=== PATIENT | male | born 1960 | race Caucasian/White ===

== ENCOUNTER 2016-06-19 16:57 | Inpatient (IN) | payer MEDICAID, OTHER ==
[~2016-06-19] VITALS: Ht 167.6 cm; Wt 87.8 kg
[2016-06-19 18:00] LABS: Basophils # (auto) 0.1 uL; Basophils % (auto) 0.5 % (0.0-2.0); Eosinophils # (auto) 0.4 uL; Eosinophils % (auto) 3.5 % (0.0-7.0); Hematocrit 26.6 % (41.0-53.0); Hemoglobin 8.9 g/dL (13.5-17.5); Lymphocytes # (auto) 1.8 uL; Lymphocytes % (auto) 15.8 % (10.0-50.0); Mean Corpuscular Hemoglobin 30.7 pg (28.0-32.0); Mean Corpuscular Hgb Conc. 33.3 g/dL (32.0-36.0); Mean Corpuscular Volume 92.1 fL (80.0-100.0); Mean Platelet Volume 6.8 fL (7.4-10.4); Monocytes # (auto) 1.1 uL; Monocytes % (auto) 9.7 % (0.0-12.0); Neutrophils % (auto) 70.5 % (37.0-80.0); Platelet Count (auto) 563 10^3/uL (140-450); Red Cell Distribution Width 14.6 % (11.6-16.0); White Blood Cell 11.3 10^3/uL (4.4-10.8)
[2016-06-19 18:22] LABS: Albumin 2.5 g/dL (3.4-5.0); BUN/Creatinine Ratio 9.5; Bilirubin, Total 0.5 mg/dL (0.2-1.0); Calcium 8.9 mg/dL (8.5-10.1); Potassium 3.3 mmol/L (3.5-5.1); Total Protein 7.1 g/dL (6.4-8.2)
[2016-06-19] MEDS ORDERED: metroNIDAZOLE 500MG/100ML 100 ML IV ONE (21:30)
[2016-06-19] MEDS ORDERED: PIPERACILLIN-TAZOB 3.375GM 100 ML IV ONE (21:30)
[2016-06-19] MEDS ORDERED: TPN PER PHARMACY 0 ML IV SCH (23:00)
[2016-06-19] MEDS ORDERED: ACETAMINOPHEN 325 MG TAB PO PRN (23:00)
[2016-06-19] MEDS ORDERED: PANTOPRAZOLE SODIUM 40 MG/10 ML VIAL IV ONE (23:00)
[2016-06-19] MEDS ORDERED: POTASSIUM CHL 20MEQ/100ML 100 ML IV ONE (23:15)
[2016-06-19 23:50] VITALS: BP 157/88
[2016-06-20] MEDS: MORPHINE SULF INJ 2 MG/ML SYRINGE 1ML IV PRN ×3 (00:53→21:12)
[2016-06-20] MEDS ORDERED: PIPERACILLIN-TAZOB 3.375GM 100 ML IV SCH (02:00)
[2016-06-20 05:00] VITALS: BP 131/85
[2016-06-20] MEDS: metroNIDAZOLE 500MG/100ML 100 ML IV SCH ×3 (05:29→22:57)
[2016-06-20] MEDS ORDERED: HYDR-2652 PO (06:09)
[2016-06-20] MEDS ORDERED: CARV6.2551 PO (06:10)
[2016-06-20] MEDS ORDERED: LISI-646 PO (06:11)
[2016-06-20] MEDS ORDERED: AMLO5TAB2 PO (06:11)
[2016-06-20] MEDS: PIPERACILLIN-TAZOB 3.375GM 100 ML IV SCH ×3 (06:41→17:32)
[2016-06-20 06:57] LABS: Basophils # (auto) 0 uL; Basophils % (auto) 0.3 % (0.0-2.0); Eosinophils # (auto) 0.4 uL; Hematocrit 26.1 % (41.0-53.0); Lymphocytes # (auto) 1.4 uL; Lymphocytes % (auto) 12.9 % (10.0-50.0); Mean Corpuscular Hemoglobin 31.5 pg (28.0-32.0); Mean Corpuscular Hgb Conc. 34.5 g/dL (32.0-36.0); Mean Corpuscular Volume 91.4 fL (80.0-100.0); Mean Platelet Volume 6.6 fL (7.4-10.4); Monocytes # (auto) 1.1 uL; Monocytes % (auto) 9.7 % (0.0-12.0); Neutrophils % (auto) 73.1 % (37.0-80.0); Platelet Count (auto) 507 10^3/uL (140-450); Red Cell Distribution Width 14.9 % (11.6-16.0)
[2016-06-20] MEDS ORDERED: DEXTROSE (50%) 50ML SYRG IV SCH (07:15)
[2016-06-20 07:21] LABS: Calcium 8.8 mg/dL (8.5-10.1); Potassium 3.6 mmol/L (3.5-5.1)
[2016-06-20 07:24] LABS: Albumin 2.5 g/dL (3.4-5.0); BUN/Creatinine Ratio 10.4; Magnesium 1.9 mg/dL (1.6-2.6)
[2016-06-20 07:27] LABS: Bilirubin, Total 0.3 mg/dL (0.2-1.0); Total Protein 6.8 g/dL (6.4-8.2)
[2016-06-20 07:44] LABS: Phosphorus 3.5 mg/dL (2.5-4.90)
[2016-06-20 09:00] VITALS: BP 142/83
[2016-06-20 09:02] LABS: INR 0.99 (0.9-1.15); Prothrombin Time 10.7 sec (9.37-12.3)
[2016-06-20] MEDS ORDERED: LIDOCAINE 2%HCL (LOCAL ANESTH.) INJ 20ML MDV ONE (09:21)
[2016-06-20] MEDS: PANTOPRAZOLE SODIUM 40 MG/10 ML VIAL IV SCH (10:09)
[2016-06-20] MEDS ORDERED: MIDAZOLAM HCL 1MG/1ML-2 ML VIAL ONE (11:04)
[2016-06-20] MEDS ORDERED: fentaNYL CITRATE 100 MCG/2 ML VL ONE (11:04)
[2016-06-20] MEDS ORDERED: InsuLIN REG 1unit/0.01ml Soln (100units/ml) SC SCH (12:00)
[2016-06-20] MEDS ORDERED: ACCU-CHEK COMFORT CURVE STRIP VI SCH (12:00)
[2016-06-20 13:00] VITALS: BP 162/96
[2016-06-20 18:27] VITALS: BP 156/87
[2016-06-20] MEDS ORDERED: TPN PER PHARMACY IV NR ×10 (20:00)
[2016-06-20] MEDS: hydrALAZINE HCL 20 MG/ML VL IV PRN (21:14)
[2016-06-20 22:00] VITALS: BP 166/97
[2016-06-21] MEDS: PIPERACILLIN-TAZOB 3.375GM 100 ML IV SCH ×5 (01:38→23:59)
[2016-06-21] MEDS: MORPHINE SULF INJ 2 MG/ML SYRINGE 1ML IV PRN ×5 (02:54→21:50)
[2016-06-21 05:00] VITALS: BP 150/83
[2016-06-21] MEDS: metroNIDAZOLE 500MG/100ML 100 ML IV SCH ×3 (05:09→21:50)
[2016-06-21 08:00] VITALS: BP 133/82
[2016-06-21 09:00] VITALS: BP 133/82
[2016-06-21] MEDS: PANTOPRAZOLE SODIUM 40 MG/10 ML VIAL IV SCH (09:20)
[2016-06-21 10:34] LABS: Urine Bilirubin Negative (Negative); Urine Color Yellow (Yellow); Urine Glucose Normal (Normal); Urine Ketone Negative (Negative); Urine Nitrite Negative (Negative); Urine RBC 8 /hpf (0 - 3); Urine Squamous Epithelial Cell FEW /hpf (<5); Urine Urobilinogen Normal (Negative); Urine pH 6.5 (5.0-8.0)
[2016-06-21 10:35] LABS: Urine Blood 1+ /uL (Negative)
[2016-06-21] MEDS: hydrALAZINE HCL 20 MG/ML VL IV PRN (12:37)
[2016-06-21] MEDS ORDERED: IOTHALAMATE MEGLUMINE INJ 250ML BOT UR ONE (12:45)
[2016-06-21 13:00] VITALS: BP 156/96
[2016-06-21 17:00] VITALS: BP 152/92
[2016-06-21 22:21] VITALS: BP 132/80
[2016-06-22] VITALS (7 sets, daily range): BP systolic 126–151; BP diastolic 74–97
[2016-06-22] MEDS: MORPHINE SULF INJ 2 MG/ML SYRINGE 1ML IV PRN ×6 (01:56→21:24)
[2016-06-22] MEDS: metroNIDAZOLE 500MG/100ML 100 ML IV SCH ×3 (05:24→21:24)
[2016-06-22 06:21] LABS: Basophils # (auto) 0 uL; Basophils % (auto) 0.2 % (0.0-2.0); Eosinophils # (auto) 0.3 uL; Eosinophils % (auto) 2.9 % (0.0-7.0); Hematocrit 26.3 % (41.0-53.0); Hemoglobin 8.9 g/dL (13.5-17.5); Lymphocytes # (auto) 1.1 uL; Lymphocytes % (auto) 9.7 % (10.0-50.0); Mean Corpuscular Hemoglobin 31.1 pg (28.0-32.0); Mean Corpuscular Hgb Conc. 33.9 g/dL (32.0-36.0); Mean Corpuscular Volume 91.7 fL (80.0-100.0); Monocytes # (auto) 1.3 uL; Monocytes % (auto) 11.8 % (0.0-12.0); Neutrophils # (auto) 8.4 uL; Neutrophils % (auto) 75.4 % (37.0-80.0); Platelet Count (auto) 483 10^3/uL (140-450); White Blood Cell 11.1 10^3/uL (4.4-10.8)
[2016-06-22 06:32] LABS: Albumin 2.5 g/dL (3.4-5.0); Calcium 8.4 mg/dL (8.5-10.1); Potassium 3.5 mmol/L (3.5-5.1)
[2016-06-22 06:34] LABS: BUN/Creatinine Ratio 7.5
[2016-06-22 06:37] LABS: Bilirubin, Total 0.6 mg/dL (0.2-1.0); Total Protein 6.4 g/dL (6.4-8.2)
[2016-06-22] MEDS: PIPERACILLIN-TAZOB 3.375GM 100 ML IV SCH ×4 (06:40→23:47)
[2016-06-22] MEDS: PANTOPRAZOLE SODIUM 40 MG/10 ML VIAL IV SCH (09:35)
[2016-06-22] MEDS ORDERED: GASTROGRAFIN 30 ML SOL ONE (13:10)
[2016-06-23] MEDS: MORPHINE SULF INJ 2 MG/ML SYRINGE 1ML IV PRN ×5 (02:07→20:23)
[2016-06-23 05:00] VITALS: BP 135/78
[2016-06-23] MEDS: metroNIDAZOLE 500MG/100ML 100 ML IV SCH ×3 (05:19→21:33)
[2016-06-23] MEDS: PIPERACILLIN-TAZOB 3.375GM 100 ML IV SCH ×4 (06:19→23:45)
[2016-06-23 09:14] VITALS: BP 137/87
[2016-06-23] MEDS: PANTOPRAZOLE SODIUM 40 MG/10 ML VIAL IV SCH (10:45)
[2016-06-23 13:09] VITALS: BP 135/85
[2016-06-23] MEDS ORDERED: MAGNESIUM CITRATE SOLUTION 300 ML BTL PO ONE (14:00)
[2016-06-23 17:10] VITALS: BP 146/91
[2016-06-23 22:00] VITALS: BP 139/81
[2016-06-24] MEDS: MORPHINE SULF INJ 2 MG/ML SYRINGE 1ML IV PRN ×8 (00:32→21:49)
[2016-06-24] MEDS: metroNIDAZOLE 500MG/100ML 100 ML IV SCH ×3 (05:25→21:48)
[2016-06-24 05:52] VITALS: BP 149/86
[2016-06-24] MEDS: PIPERACILLIN-TAZOB 3.375GM 100 ML IV SCH ×2 (06:05→11:49)
[2016-06-24 09:00] VITALS: BP 160/94
[2016-06-24] MEDS: PANTOPRAZOLE SODIUM 40 MG/10 ML VIAL IV SCH (09:00)
[2016-06-24 13:00] VITALS: BP 161/100
[2016-06-24] MEDS ORDERED: MIDAZOLAM HCL 1MG/1ML-2 ML VIAL ONE (14:34)
[2016-06-24] MEDS ORDERED: fentaNYL CITRATE 100 MCG/2 ML VL ONE (14:34)
[2016-06-24] MEDS ORDERED: MEPERIDINE HCL (50 MG/ML) 1 ML VIAL ONE (14:34)
[2016-06-24] MEDS ORDERED: PROPOFOL 10 MG/ML 20 ML IV ONE (14:34)
[2016-06-24] MEDS ORDERED: fentaNYL CITRATE 5 ML ONE (14:34)
[2016-06-24] MEDS ORDERED: DEXAMETHASONE SOD PHOS 10MG/1ML VIAL INJ ONE (14:34)
[2016-06-24 15:19] LABS: Basophils # (auto) 0 uL; Basophils % (auto) 0.4 % (0.0-2.0); Eosinophils # (auto) 0.5 uL; Hematocrit 26.2 % (41.0-53.0); Hemoglobin 8.8 g/dL (13.5-17.5); Lymphocytes # (auto) 1.3 uL; Lymphocytes % (auto) 14.5 % (10.0-50.0); Mean Corpuscular Hemoglobin 30.7 pg (28.0-32.0); Mean Corpuscular Hgb Conc. 33.6 g/dL (32.0-36.0); Mean Corpuscular Volume 91.4 fL (80.0-100.0); Mean Platelet Volume 6.9 fL (7.4-10.4); Monocytes # (auto) 1.2 uL; Monocytes % (auto) 13.6 % (0.0-12.0); Neutrophils # (auto) 5.7 uL; Neutrophils % (auto) 65.5 % (37.0-80.0); Platelet Count (auto) 483 10^3/uL (140-450); Red Cell Distribution Width 14.6 % (11.6-16.0); White Blood Cell 8.6 10^3/uL (4.4-10.8)
[2016-06-24] MEDS ORDERED: ROCURONIUM 10MG/ML 10ML VIAL IV ONE (15:25)
[2016-06-24] MEDS ORDERED: NEOSTIGMINE 1 MG/ML INJ (10mg/10ML VIAL) IV ONE (15:25)
[2016-06-24] MEDS ORDERED: GLYCOPYRROLATE 0.2 MG/ML 1ML VIAL IV ONE (15:25)
[2016-06-24] MEDS ORDERED: BUPIVACAINE 0.25% INJ 50ML VIAL ONE (15:27)
[2016-06-24] MEDS ORDERED: ceFAZolin 1GM/50ML D5W 100 ML IV ONE (15:31)
[2016-06-24] MEDS ORDERED: SUCCINYLCHOLINE CHLORIDE 20 MG/ML 10ML VIAL IV ONE (16:28)
[2016-06-24] MEDS ORDERED: GLYCOPYRROLATE 0.2 MG/ML 1ML VIAL ONE (17:37)
[2016-06-24] MEDS ORDERED: NEOSTIGMINE 1 MG/ML INJ (10mg/10ML VIAL) ONE (17:37)
[2016-06-24] MEDS ORDERED: MIDAZOLAM HCL 1MG/1ML-2 ML VIAL IV PRN (18:00)
[2016-06-24] MEDS ORDERED: ONDANSETRON HCL 4 MG/2 ML VIAL IV ONE (18:00)
[2016-06-24] MEDS ORDERED: KETOROLAC TROMETH 30 MG/ML 1ML VIAL IV ONE (18:00)
[2016-06-24] MEDS ORDERED: ePHEDrine SULFATE 50 MG/ML AMP IV PRN (18:00)
[2016-06-24] MEDS ORDERED: HYDROmorphone HCL 2 MG/ML VL ONE (18:08)
[2016-06-24] MEDS: HYDROmorphone HCL 2 MG/ML VL IV PRN ×6 (18:15→23:35)
[2016-06-24] MEDS ORDERED: LABETALOL HCL 5 MG/ML 4ML SYRINGE IV ONE (18:18)
[2016-06-24] MEDS: LABETALOL HCL 5 MG/ML 4ML SYRINGE IV PRN ×2 (18:23→18:40)
[2016-06-24] MEDS ORDERED: ONDANSETRON HCL 4 MG/2 ML VIAL IV PRN (18:45)
[2016-06-24] MEDS: hydrALAZINE HCL 20 MG/ML VL IV PRN ×2 (18:55→19:10)
[2016-06-24 20:00] VITALS: BP 136/77
[2016-06-24 22:00] VITALS: BP_SYST 106; BP_SYST 136; BP_DIAS 61; BP_DIAS 77
[2016-06-24] MEDS: PIPERACILLIN-TAZOB 2.25GM 50 ML IV SCH (23:42)
[2016-06-25] VITALS (38 sets, daily range): BP systolic 89–155; BP diastolic 50–85
[2016-06-25] MEDS ORDERED: PIPERACILLIN-TAZOB 3.375GM 100 ML IV SCH
[2016-06-25] MEDS: SODIUM CHLORIDE 0.9% 1,000 ML IV SCH ×4 (01:25→21:31)
[2016-06-25] MEDS: MORPHINE SULF INJ 2 MG/ML SYRINGE 1ML IV PRN ×3 (02:19→14:50)
[2016-06-25] MEDS ORDERED: NITROGLYCERIN 0.4 MG SL TAB SL PRN ×2 (03:45)
[2016-06-25] MEDS ORDERED: MORPHINE SULF INJ 2 MG/ML SYRINGE 1ML IV PRN ×2 (03:45)
[2016-06-25] MEDS: HYDROmorphone HCL 2 MG/ML VL IV PRN ×5 (03:52→21:26)
[2016-06-25] MEDS: ONDANSETRON HCL 4 MG/2 ML VIAL IV PRN ×3 (05:04→14:52)
[2016-06-25] MEDS: metroNIDAZOLE 500MG/100ML 100 ML IV SCH ×3 (05:27→22:07)
[2016-06-25] MEDS: PIPERACILLIN-TAZOB 2.25GM 50 ML IV SCH ×3 (06:32→18:16)
[2016-06-25] MEDS: SODIUM CHLOR 0.9% PF (SALINE LOCK) 10ML VIAL IV SCH ×3 (06:37→22:07)
[2016-06-25 06:43] LABS: Basophils # (auto) 0 uL; Eosinophils # (auto) 0 uL; Hematocrit 26.7 % (41.0-53.0); Lymphocytes # (auto) 0.8 uL; Lymphocytes % (auto) 4.9 % (10.0-50.0); Mean Corpuscular Hemoglobin 31.4 pg (28.0-32.0); Mean Corpuscular Hgb Conc. 33.9 g/dL (32.0-36.0); Mean Corpuscular Volume 92.6 fL (80.0-100.0); Mean Platelet Volume 7.4 fL (7.4-10.4); Monocytes # (auto) 1.2 uL; Monocytes % (auto) 7.6 % (0.0-12.0); Neutrophils # (auto) 13.9 uL; Neutrophils % (auto) 87.5 % (37.0-80.0); Platelet Count (auto) 541 10^3/uL (140-450); Red Cell Distribution Width 15.1 % (11.6-16.0); White Blood Cell 15.8 10^3/uL (4.4-10.8)
[2016-06-25 06:52] LABS: INR 1.12 (0.9-1.15); Partial Thromboplastin Time 28.2 sec (22.64-33.71); Prothrombin Time 12.1 sec (9.37-12.3)
[2016-06-25 07:04] LABS: Potassium 4.4 mmol/L (3.5-5.1)
[2016-06-25 07:08] LABS: Albumin 2.3 g/dL (3.4-5.0); BUN/Creatinine Ratio 8.8; Calcium 8.4 mg/dL (8.5-10.1)
[2016-06-25 07:16] LABS: Bilirubin, Total 0.2 mg/dL (0.2-1.0); Total Protein 5.9 g/dL (6.4-8.2)
[2016-06-25] MEDS: PANTOPRAZOLE SODIUM 40 MG/10 ML VIAL IV SCH (10:12)
[2016-06-25] MEDS ORDERED: SODIUM CHLORIDE 0.9% 1,000 ML IV ONE (13:30)
[2016-06-25] MEDS ORDERED: TEMAZEPAM 15 MG CAP PO PRN (21:00)
[2016-06-25 22:11] LABS: Basophils # (auto) 0 uL; Basophils % (auto) 0.3 % (0.0-2.0); DEFINITIVE VIEW TRANSMISSION; Eosinophils # (auto) 0 uL; Eosinophils % (auto) 0.1 % (0.0-7.0); Hematocrit 24.8 % (41.0-53.0); Hemoglobin 8.4 g/dL (13.5-17.5); Lymphocytes # (auto) 1.3 uL; Mean Corpuscular Hemoglobin 30.5 pg (28.0-32.0); Mean Corpuscular Hgb Conc. 33.8 g/dL (32.0-36.0); Mean Corpuscular Volume 90.1 fL (80.0-100.0); Monocytes # (auto) 1.5 uL; Monocytes % (auto) 10.3 % (0.0-12.0); Neutrophils # (auto) 11.9 uL; Neutrophils % (auto) 80.3 % (37.0-80.0); Platelet Count (auto) 391 10^3/uL (140-450); Red Cell Distribution Width 15.2 % (11.6-16.0); White Blood Cell 14.8 10^3/uL (4.4-10.8)
[2016-06-25] MEDS: THROAT LOZENGES(CEPASTAT) MT PRN (23:01)
[2016-06-26] VITALS (99 sets, daily range): BP systolic 135–186; BP diastolic 65–109
[2016-06-26] MEDS: HYDROmorphone HCL 2 MG/ML VL IV PRN ×10 (00:42→22:12)
[2016-06-26] MEDS: PIPERACILLIN-TAZOB 2.25GM 50 ML IV SCH ×5 (00:48→23:45)
[2016-06-26] MEDS: SODIUM CHLORIDE 0.9% 1,000 ML IV SCH ×3 (04:05→17:25)
[2016-06-26] MEDS: hydrALAZINE HCL 20 MG/ML VL IV PRN ×3 (06:12→20:16)
[2016-06-26] MEDS: metroNIDAZOLE 500MG/100ML 100 ML IV SCH ×3 (06:12→22:12)
[2016-06-26] MEDS: SODIUM CHLOR 0.9% PF (SALINE LOCK) 10ML VIAL IV SCH ×3 (06:12→22:12)
[2016-06-26] MEDS: THROAT LOZENGES(CEPASTAT) MT PRN (06:50)
[2016-06-26] MEDS: PANTOPRAZOLE SODIUM 40 MG/10 ML VIAL IV SCH (08:58)
[2016-06-26 09:37] LABS: Basophils # (auto) 0 uL; Basophils % (auto) 0.2 % (0.0-2.0); Eosinophils # (auto) 0.2 uL; Eosinophils % (auto) 1.4 % (0.0-7.0); Hemoglobin 9.7 g/dL (13.5-17.5); Lymphocytes # (auto) 1.1 uL; Lymphocytes % (auto) 7.6 % (10.0-50.0); Mean Corpuscular Hemoglobin 30.1 pg (28.0-32.0); Mean Corpuscular Hgb Conc. 33.6 g/dL (32.0-36.0); Mean Corpuscular Volume 89.5 fL (80.0-100.0); Mean Platelet Volume 6.9 fL (7.4-10.4); Monocytes # (auto) 1.4 uL; Monocytes % (auto) 9.7 % (0.0-12.0); Neutrophils # (auto) 12.1 uL; Neutrophils % (auto) 81.1 % (37.0-80.0); Platelet Count (auto) 332 10^3/uL (140-450); Red Cell Distribution Width 15.5 % (11.6-16.0); White Blood Cell 14.9 10^3/uL (4.4-10.8)
[2016-06-26 09:52] LABS: Albumin 2.5 g/dL (3.4-5.0); BUN/Creatinine Ratio 8.1; Bilirubin, Total 0.4 mg/dL (0.2-1.0); Calcium 8.2 mg/dL (8.5-10.1); Potassium 3.7 mmol/L (3.5-5.1)
[2016-06-26] MEDS ORDERED: POTASSIUM CHL 20MEQ/100ML 100 ML IV ONE (11:00)
[2016-06-26 11:26] LABS: Partial Thromboplastin Time 28.6 sec (22.64-33.71)
[2016-06-26 11:28] LABS: INR 1.31 (0.9-1.15); Prothrombin Time 14.1 sec (9.37-12.3)
[2016-06-26 11:48] LABS: Basophils # (auto) 0 uL; Basophils % (auto) 0.2 % (0.0-2.0); DEFINITIVE VIEW TRANSMISSION; Eosinophils # (auto) 0.3 uL; Eosinophils % (auto) 1.6 % (0.0-7.0); Hemoglobin 9.8 g/dL (13.5-17.5); Lymphocytes % (auto) 6.5 % (10.0-50.0); Mean Corpuscular Hemoglobin 30.1 pg (28.0-32.0); Mean Corpuscular Hgb Conc. 33.6 g/dL (32.0-36.0); Mean Corpuscular Volume 89.5 fL (80.0-100.0); Mean Platelet Volume 7.2 fL (7.4-10.4); Monocytes # (auto) 1.7 uL; Monocytes % (auto) 10.5 % (0.0-12.0); Neutrophils # (auto) 12.7 uL; Neutrophils % (auto) 81.2 % (37.0-80.0); Platelet Count (auto) 335 10^3/uL (140-450); Red Cell Distribution Width 14.9 % (11.6-16.0); White Blood Cell 15.7 10^3/uL (4.4-10.8)
[2016-06-26] MEDS: LINEZOLID 600MG/300ML 300 ML IV SCH (16:00)
[2016-06-26] MEDS: LABETALOL HCL 5 MG/ML 4ML SYRINGE IV PRN ×3 (18:10→23:45)
[2016-06-26 19:07] LABS: Hematocrit 28.9 % (41.0-53.0); Hemoglobin 9.7 g/dL (13.5-17.5)
[2016-06-27] VITALS (96 sets, daily range): BP systolic 136–207; BP diastolic 48–121
[2016-06-27] MEDS: SODIUM CHLORIDE 0.9% 1,000 ML IV SCH ×4 (00:05→20:00)
[2016-06-27] MEDS: HYDROmorphone HCL 2 MG/ML VL IV PRN ×6 (00:18→21:43)
[2016-06-27 00:35] LABS: Hematocrit 29.7 % (41.0-53.0); Hemoglobin 9.9 g/dL (13.5-17.5)
[2016-06-27] MEDS ORDERED: METOPROLOL TARTRATE 1MG/1ML-5ML VIAL IV ONE (00:45)
[2016-06-27] MEDS ORDERED: LISINOPRIL 10 MG TAB PO ONE (01:15)
[2016-06-27] MEDS: LABETALOL HCL 5 MG/ML 4ML SYRINGE IV PRN ×4 (04:00→18:22)
[2016-06-27] MEDS: LINEZOLID 600MG/300ML 300 ML IV SCH ×2 (04:00→16:18)
[2016-06-27 04:24] LABS: Basophils # (auto) 0 uL; Basophils % (auto) 0.2 % (0.0-2.0); DEFINITIVE VIEW TRANSMISSION; Eosinophils # (auto) 0.5 uL; Eosinophils % (auto) 2.9 % (0.0-7.0); Hematocrit 30.3 % (41.0-53.0); Lymphocytes % (auto) 5.9 % (10.0-50.0); Mean Corpuscular Hgb Conc. 33.2 g/dL (32.0-36.0); Mean Corpuscular Volume 90.5 fL (80.0-100.0); Monocytes # (auto) 1.7 uL; Monocytes % (auto) 9.8 % (0.0-12.0); Neutrophils # (auto) 13.9 uL; Neutrophils % (auto) 81.2 % (37.0-80.0); Platelet Count (auto) 331 10^3/uL (140-450); Red Cell Distribution Width 15.9 % (11.6-16.0); White Blood Cell 17.1 10^3/uL (4.4-10.8)
[2016-06-27 04:41] LABS: BUN/Creatinine Ratio 7.7; Calcium 8.3 mg/dL (8.5-10.1); Potassium 4.1 mmol/L (3.5-5.1)
[2016-06-27] MEDS: LORazepam 2MG/ML-1ML VIAL IV PRN ×2 (04:55→20:07)
[2016-06-27] MEDS: SODIUM CHLOR 0.9% PF (SALINE LOCK) 10ML VIAL IV SCH ×3 (05:42→21:42)
[2016-06-27] MEDS: metroNIDAZOLE 500MG/100ML 100 ML IV SCH ×3 (05:42→21:42)
[2016-06-27] MEDS: PIPERACILLIN-TAZOB 2.25GM 50 ML IV SCH ×4 (05:42→23:34)
[2016-06-27] MEDS: LISINOPRIL 10 MG TAB PO SCH ×2 (08:57→21:42)
[2016-06-27] MEDS: METOPROLOL TARTRATE 25 MG TAB PO SCH ×2 (08:58→21:42)
[2016-06-27] MEDS ORDERED: GASTROGRAFIN 120 ML SOL ONE (09:25)
[2016-06-27] MEDS ORDERED: TPN PER PHARMACY 0 ML IV SCH (09:30)
[2016-06-27 10:01] LABS: Albumin 2.4 g/dL (3.4-5.0)
[2016-06-27] MEDS ORDERED: POM PO (10:08)
[2016-06-27 10:16] LABS: Magnesium 1.9 mg/dL (1.6-2.6); Phosphorus 3.2 mg/dL (2.5-4.90)
[2016-06-27] MEDS ORDERED: DEXTROSE (50%) 50ML SYRG IV SCH (10:30)
[2016-06-27] MEDS ORDERED: ENALAPRILAT 1.25 MG/ML-1ML VIAL IV PRN (10:45)
[2016-06-27] MEDS: hydrALAZINE HCL 20 MG/ML VL IV PRN ×2 (11:12→21:43)
[2016-06-27] MEDS: FLUCONAZOLE 200MG/100ML 100 ML IV SCH (11:21)
[2016-06-27] MEDS: PANTOPRAZOLE SODIUM 40 MG/10 ML VIAL IV SCH (11:21)
[2016-06-27] MEDS: ONDANSETRON HCL 4 MG/2 ML VIAL IV PRN ×3 (11:38→19:45)
[2016-06-27] MEDS: InsuLIN REG 1unit/0.01ml Soln (100units/ml) SC SCH ×3 (11:44→23:38)
[2016-06-27] MEDS: ACCU-CHEK COMFORT CURVE STRIP VI SCH ×3 (11:44→23:34)
[2016-06-27 12:09] LABS: Hematocrit 32.5 % (41.0-53.0); Hemoglobin 10.9 g/dL (13.5-17.5)
[2016-06-27 12:35] LABS: Albumin 2.4 g/dL (3.4-5.0); Bilirubin, Direct 0.1 mg/dL (0-0.2); Bilirubin, Total 0.4 mg/dL (0.2-1.0); Total Protein 6.1 g/dL (6.4-8.2)
[2016-06-27] MEDS ORDERED: cloNIDine 0.2 mg/24hr 7DAY PATCH TD SCH (17:00)
[2016-06-27] MEDS ORDERED: TPN PER PHARMACY IV NR ×9 (20:00)
[2016-06-27 22:06] LABS: Hematocrit 33.3 % (41.0-53.0); Hemoglobin 11.2 g/dL (13.5-17.5)
[2016-06-28] VITALS (41 sets, daily range): BP systolic 113–210; BP diastolic 62–111
[2016-06-28] MEDS: HYDROmorphone HCL 2 MG/ML VL IV PRN ×7 (00:55→22:58)
[2016-06-28] MEDS: LABETALOL HCL 5 MG/ML 4ML SYRINGE IV PRN ×4 (00:55→13:38)
[2016-06-28] MEDS: LINEZOLID 600MG/300ML 300 ML IV SCH ×2 (03:30→16:06)
[2016-06-28] MEDS: ONDANSETRON HCL 4 MG/2 ML VIAL IV PRN (03:46)
[2016-06-28 04:15] LABS: Basophils # (auto) 0 uL; Basophils % (auto) 0.1 % (0.0-2.0); Eosinophils # (auto) 0.2 uL; Eosinophils % (auto) 0.9 % (0.0-7.0); Hematocrit 32.3 % (41.0-53.0); Hemoglobin 10.8 g/dL (13.5-17.5); Lymphocytes # (auto) 0.9 uL; Lymphocytes % (auto) 5.4 % (10.0-50.0); Mean Corpuscular Hgb Conc. 33.5 g/dL (32.0-36.0); Mean Corpuscular Volume 89.6 fL (80.0-100.0); Mean Platelet Volume 7.3 fL (7.4-10.4); Monocytes # (auto) 1.6 uL; Monocytes % (auto) 9.5 % (0.0-12.0); Neutrophils % (auto) 84.1 % (37.0-80.0); Platelet Count (auto) 441 10^3/uL (140-450); Red Cell Distribution Width 15.7 % (11.6-16.0); White Blood Cell 16.7 10^3/uL (4.4-10.8)
[2016-06-28 04:35] LABS: Albumin 2.1 g/dL (3.4-5.0); BUN/Creatinine Ratio 7.7; Bilirubin, Total 0.3 mg/dL (0.2-1.0); Calcium 8.1 mg/dL (8.5-10.1); Magnesium 2.1 mg/dL (1.6-2.6); Phosphorus 2.5 mg/dL (2.5-4.90); Potassium 3.8 mmol/L (3.5-5.1); Total Protein 5.6 g/dL (6.4-8.2)
[2016-06-28] MEDS: SODIUM CHLOR 0.9% PF (SALINE LOCK) 10ML VIAL IV SCH ×2 (05:36→13:48)
[2016-06-28] MEDS: PIPERACILLIN-TAZOB 2.25GM 50 ML IV SCH ×3 (05:36→18:29)
[2016-06-28] MEDS: ACCU-CHEK COMFORT CURVE STRIP VI SCH ×3 (05:36→18:27)
[2016-06-28] MEDS: metroNIDAZOLE 500MG/100ML 100 ML IV SCH ×3 (05:36→22:00)
[2016-06-28] MEDS: InsuLIN REG 1unit/0.01ml Soln (100units/ml) SC SCH ×3 (05:45→18:21)
[2016-06-28] MEDS: SODIUM CHLORIDE 0.9% 1,000 ML IV SCH ×2 (06:00→11:30)
[2016-06-28] MEDS: PANTOPRAZOLE SODIUM 40 MG/10 ML VIAL IV SCH (09:41)
[2016-06-28] MEDS: METOPROLOL TARTRATE 25 MG TAB PO SCH ×2 (09:42→22:00)
[2016-06-28] MEDS: hydrALAZINE HCL 20 MG/ML VL IV PRN (09:42)
[2016-06-28] MEDS: FLUCONAZOLE 200MG/100ML 100 ML IV SCH (09:43)
[2016-06-28] MEDS: LISINOPRIL 10 MG TAB PO SCH ×2 (09:43→22:00)
[2016-06-28] MEDS ORDERED: LORazepam 2MG/ML-1ML VIAL IV PRN (10:30)
[2016-06-28] MEDS ORDERED: cloNIDine 0.3 mg/24hr 7DAY PATCH TD SCH (10:30)
[2016-06-28] MEDS: NITROGLYCERIN 2% OINT 1GM PKG TD SCH ×2 (13:48→22:55)
[2016-06-28 15:24] LABS: Hematocrit 30.8 % (41.0-53.0); Hemoglobin 10.3 g/dL (13.5-17.5)
[2016-06-28] MEDS ORDERED: TPN PER PHARMACY IV NR ×11 (20:00)
[2016-06-29] VITALS: BP 170/84
== END 2016-06-28 23:53 | disposition short-term general hospital (02) | DRG 443 ==
LOC: ER 17:03 → OVERFLOW 17:04 → WEST WING 23:43 → TELE-WESTW 06-25 00:21 → ICU WEST 06-25 18:01
PROVIDERS: ADMIT Internal Medicine; ATTEND Internal Medicine
PROC: 30233K1 Transfusion of Nonautologous Frozen Plasma into Peripheral Vein, Percutaneous Approach (ICD-10-PCS; 2016-06-19)
PROC: 30233N1 Transfusion of Nonautologous Red Blood Cells into Peripheral Vein, Percutaneous Approach (ICD-10-PCS; 2016-06-19)
PROC: 0W9G0ZZ Drainage of Peritoneal Cavity, Open Approach (ICD-10-PCS; 2016-06-24)
PROC: 0WQF0ZZ Repair Abdominal Wall, Open Approach (ICD-10-PCS; 2016-06-24)
PROC: 3E1M38Z Irrigation of Peritoneal Cavity using Irrigating Substance, Percutaneous Approach (ICD-10-PCS; 2016-06-24)
PROC: 0D1N0Z4 Bypass Sigmoid Colon to Cutaneous, Open Approach (ICD-10-PCS; principal; 2016-06-24 15:40)
DX: D49.4 Neoplasm of unspecified behavior of bladder (principal); E43 Unspecified severe protein-calorie malnutrition; N17.9 Acute kidney failure, unspecified; K57.40 Diverticulitis of both small and large intestine with perforation and abscess without bleeding; S36.92XA Contusion of unspecified intra-abdominal organ, initial encounter; K42.0 Umbilical hernia with obstruction, without gangrene; N30.90 Cystitis, unspecified without hematuria; I10 Essential (primary) hypertension; D72.829 Elevated white blood cell count, unspecified; E87.6 Hypokalemia; D64.9 Anemia, unspecified; N30.91 Cystitis, unspecified with hematuria; S30.1XXA Contusion of abdominal wall, initial encounter; Z82.49 Family history of ischemic heart disease and other diseases of the circulatory system; Z90.49 Acquired absence of other specified parts of digestive tract; Z88.8 Allergy status to other drugs, medicaments and biological substances; Z84.1 Family history of disorders of kidney and ureter; R39.89 Other symptoms and signs involving the genitourinary system; Z68.31 Body mass index [BMI] 31.0-31.9, adult
CPT/HCPCS: 36415; 71010; 72192; 74176; 74250; 74430; 75989; 80048; 80053; 80076; 81001; 82040; 82962; 83735; 84100; 84478; 85014; 85018; 85025; 85610; 85730; 86850; 86900; 86901; 86920; 87040; 87070; 87077; 87081; 87086; 87186; 93005; 96374; 96375; C1729; C9113; J0330; J0690; J1100; J1450; J1815; J1885; J2250; J2405; J2543; J2704; J3480; J3490

== ENCOUNTER 2016-08-20 23:17 | Inpatient (IN) | payer MEDICAID ==
[~2016-08-20] VITALS: Ht 172.7 cm; Wt 75.7 kg
[~2016-08-20 23:17] MED LIST: AMLO5TAB2 PO; CARV6.2551 PO; HYDR-2652 PO; LISI-646 PO; POM PO
[2016-08-21 00:40] LABS: Basophils # (auto) 0.1 uL; Basophils % (auto) 0.4 % (0.0-2.0); Eosinophils # (auto) 0.2 uL; Eosinophils % (auto) 1.3 % (0.0-7.0); Hematocrit 29.6 % (41.0-53.0); Hemoglobin 9.9 g/dL (13.5-17.5); Lymphocytes % (auto) 6.4 % (10.0-50.0); Mean Corpuscular Hemoglobin 29.9 pg (28.0-32.0); Mean Corpuscular Hgb Conc. 33.6 g/dL (32.0-36.0); Mean Corpuscular Volume 89.1 fL (80.0-100.0); Monocytes # (auto) 1.1 uL; Monocytes % (auto) 6.8 % (0.0-12.0); Neutrophils # (auto) 13.3 uL; Neutrophils % (auto) 85.1 % (37.0-80.0); Platelet Count (auto) 490 10^3/uL (140-450); Red Cell Distribution Width 14.3 % (11.6-16.0); SUSPECT SEE PRINTOUT; White Blood Cell 15.7 10^3/uL (4.4-10.8)
[2016-08-21 00:54] LABS: INR 0.97 (0.9-1.15); Partial Thromboplastin Time 27.3 sec (22.64-33.71); Prothrombin Time 10.6 sec (9.37-12.3)
[2016-08-21 01:02] LABS: Anion Gap 14 (5-15); BUN/Creatinine Ratio 7.3; Blood Urea Nitrogen 13 mg/dL (7-18); Calcium 9.2 mg/dL (8.5-10.1); Carbon Dioxide 21 mmol/L (21-32); Chloride 105 mmol/L (98-107); GFR African American 51 mL/min; GFR Non-African American 42 mL/min; Glucose 106 mg/dL (74-106); Magnesium 1.6 mg/dL (1.6-2.6); Potassium 3.2 mmol/L (3.5-5.1); Sodium 140 mmol/L (136-145)
[2016-08-21 01:08] LABS: Alkaline Phosphatase 105 U/L (45-117); Aspartate Aminotransferase 11 U/L (15-37); Bilirubin, Total 0.3 mg/dL (0.2-1.0); Total Protein 7.2 g/dL (6.4-8.2)
[2016-08-21 01:12] LABS: Temperature: 22.1 C (20.0-25.0)
[2016-08-21] MEDS ORDERED: ONDANSETRON HCL 4 MG/2 ML VIAL IV ONE (01:45)
[2016-08-21] MEDS ORDERED: MORPHINE SULFATE 4 MG/ML SYRG IV ONE (01:45)
[2016-08-21] MEDS ORDERED: hydrALAZINE HCL 25 MG TAB PO ONE (03:00)
[2016-08-21] MEDS ORDERED: NITROGLYCERIN 0.4 MG SL TAB SL PRN (03:00)
[2016-08-21] MEDS ORDERED: TEMAZEPAM 15 MG CAP PO PRN (03:00)
[2016-08-21] MEDS ORDERED: HYDROcodone-ACET 5/325MG TAB PO PRN (03:00)
[2016-08-21] MEDS ORDERED: ONDANSETRON HCL 4 MG/2 ML VIAL IV PRN (03:00)
[2016-08-21] MEDS ORDERED: MORPHINE SULFATE 4 MG/ML SYRG IV PRN (03:00)
[2016-08-21] MEDS ORDERED: ACETAMINOPHEN 325 MG TAB PO PRN (03:00)
[2016-08-21] MEDS ORDERED: POTASSIUM CHL 20 Meq TABLET PO ONE (03:15)
[2016-08-21] MEDS: ENOXAPARIN SOD 40 MG/0.4 ML SYRINGE SC SCH ×2 (03:54→10:00)
[2016-08-21] MEDS: FAMOTIDINE 20 MG TAB PO SCH ×2 (10:00→21:39)
[2016-08-21] MEDS: amLODIPine BESYLATE 5 MG TAB PO SCH (10:00)
[2016-08-21] MEDS ORDERED: CARVEDILOL 3.125 MG TAB PO SCH (10:00)
[2016-08-21] MEDS: hydrALAZINE HCL 25 MG TAB PO SCH ×2 (10:00→21:40)
[2016-08-21] MEDS: LISINOPRIL 20 MG TAB PO SCH ×2 (10:00→21:41)
[2016-08-21] MEDS: ASPirin 81 mg TAB PO SCH (10:00)
[2016-08-21] MEDS ORDERED: CARVEDILOL 3.125 MG TAB PO ONE (10:45)
[2016-08-21 11:52] VITALS: BP 162/96
[2016-08-21] MEDS: cefTRIAXone 1GM/50ML D5W 50 ML IV SCH (14:24)
[2016-08-21] MEDS ORDERED: DOCU-94 PO (14:59)
[2016-08-21] MEDS ORDERED: HYDR-2650 PO (14:59)
[2016-08-21] MEDS ORDERED: ONDA4TAB5 PO (14:59)
[2016-08-21 16:26] LABS: Urine Bilirubin Negative (Negative); Urine Blood Negative /uL (Negative); Urine Color Yellow (Yellow); Urine Glucose Normal (Normal); Urine Ketone Negative (Negative); Urine Nitrite Negative (Negative); Urine RBC <1 /hpf (0 - 3); Urine Urobilinogen Normal (Negative)
[2016-08-21 20:00] VITALS: BP 151/80
[2016-08-21 22:00] VITALS: BP 151/80
[2016-08-22 05:59] LABS: Basophils # (auto) 0.1 uL; Basophils % (auto) 0.8 % (0.0-2.0); CONDITION Y; Eosinophils # (auto) 0.4 uL; Eosinophils % (auto) 5.1 % (0.0-7.0); Hematocrit 26.1 % (41.0-53.0); Hemoglobin 8.9 g/dL (13.5-17.5); Lymphocytes # (auto) 1.3 uL; Lymphocytes % (auto) 17.2 % (10.0-50.0); Mean Corpuscular Hemoglobin 30.5 pg (28.0-32.0); Mean Corpuscular Hgb Conc. 34.2 g/dL (32.0-36.0); Mean Corpuscular Volume 89.2 fL (80.0-100.0); Mean Platelet Volume 7.3 fL (7.4-10.4); Monocytes # (auto) 0.7 uL; Monocytes % (auto) 8.7 % (0.0-12.0); Neutrophils # (auto) 5.1 uL; Neutrophils % (auto) 68.2 % (37.0-80.0); Platelet Count (auto) 424 10^3/uL (140-450); Red Cell Distribution Width 15.6 % (11.6-16.0); White Blood Cell 7.5 10^3/uL (4.4-10.8)
[2016-08-22 06:20] LABS: Albumin 2.5 g/dL (3.4-5.0); Bilirubin, Total 0.3 mg/dL (0.2-1.0); Calcium 8.5 mg/dL (8.5-10.1); Potassium 4.1 mmol/L (3.5-5.1); Total Protein 6.2 g/dL (6.4-8.2)
[2016-08-22] MEDS ORDERED: CARVEDILOL 12.5 MG TAB PO SCH (10:00)
[2016-08-22] MEDS: hydrALAZINE HCL 25 MG TAB PO SCH (12:18)
[2016-08-22] MEDS: ASPirin 81 mg TAB PO SCH (12:18)
[2016-08-22] MEDS: cefTRIAXone 1GM/50ML D5W 50 ML IV SCH (12:18)
[2016-08-22] MEDS: LISINOPRIL 20 MG TAB PO SCH (12:19)
[2016-08-22] MEDS: FAMOTIDINE 20 MG TAB PO SCH (12:19)
[2016-08-22] MEDS: ENOXAPARIN SOD 40 MG/0.4 ML SYRINGE SC SCH (12:19)
[2016-08-22] MEDS: amLODIPine BESYLATE 5 MG TAB PO SCH (12:24)
[2016-08-22 13:42] VITALS: BP 110/72
== END 2016-08-22 14:50 | disposition home or self-care (01) | DRG 203 ==
LOC: EDBD 23:17 → ER 23:17 → TELE 23:18 → TELE-E-ADS 08-21 08:24 → TELE-WESTW 08-21 13:19
PROVIDERS: ADMIT Nurse Practitioner; ATTEND Internal Medicine
DX: R07.9 Chest pain, unspecified (principal); E44.1 Mild protein-calorie malnutrition; I10 Essential (primary) hypertension; E87.6 Hypokalemia; I48.2 Chronic atrial fibrillation; D72.829 Elevated white blood cell count, unspecified; Z68.25 Body mass index [BMI] 25.0-25.9, adult
CPT/HCPCS: 36415; 71010; 78452; 80053; 81001; 83735; 83880; 84484; 85025; 85379; 85610; 85730; 87040; 87081; 93005; 93017; 93306; 93970; 96365; 96375; J0696; J2405

== ENCOUNTER 2017-04-15 14:20 | Inpatient (IN) | payer MEDICAID ==
[~2017-04-15] VITALS: Ht 170.2 cm; Wt 73.3 kg
[~2017-04-15 14:20] MED LIST changes: -AMLO5TAB2 PO; -CARV6.2551 PO; +DOCU-94 PO; -HYDR-2652 PO; +HYDR10TA26 PO; +ONDA4TAB5 PO; -POM PO
[2017-04-15] MEDS ORDERED: KETOROLAC TROMETH 60MG/2ML VIAL IM ONE (16:30)
[2017-04-15] MEDS ORDERED: SODIUM CHLORIDE 0.9% 1,000 ML IV ONE (17:35)
[2017-04-15] MEDS ORDERED: ONDANSETRON HCL 4 MG/2 ML VIAL IV ONE (17:45)
[2017-04-15] MEDS ORDERED: MORPHINE SULFATE 4 MG/ML SYR/VIAL IV ONE (17:45)
[2017-04-15] MEDS ORDERED: ONDANSETRON HCL 4 MG/2 ML VIAL IV PRN (18:30)
[2017-04-15] MEDS ORDERED: ACETAMINOPHEN 325 MG TAB PO PRN (18:30)
[2017-04-15 18:36] LABS: Eosinophils # (auto) 0.2 uL; Eosinophils % (auto) 1.2 % (0.0-7.0); Hemoglobin 11.4 g/dL (13.5-17.5); Lymphocytes # (auto) 2.1 uL
[2017-04-15 18:37] LABS: Basophils # (auto) 0.2 uL; Basophils % (auto) 1.1 % (0.0-2.0); Hematocrit 32.8 % (41.0-53.0); Lymphocytes % (auto) 14.2 % (10.0-50.0); Mean Corpuscular Hemoglobin 36.8 pg (28.0-32.0); Mean Corpuscular Hgb Conc. 34.9 g/dL (32.0-36.0); Mean Corpuscular Volume 105.5 fL (80.0-100.0); Monocytes # (auto) 1.1 uL; Monocytes % (auto) 7.2 % (0.0-12.0); Neutrophils # (auto) 11.4 uL; Neutrophils % (auto) 76.3 % (37.0-80.0); Nucleated Red Blood Cells % 0.1 %; Platelet Count (auto) 390 10^3/uL (140-450); Red Blood Cells 3.11 10^6/uL (4.5-5.90); White Blood Cell 14.9 10^3/uL (4.4-10.8)
[2017-04-15 18:52] LABS: Albumin 3.1 g/dL (3.4-5.0); Calcium 9.2 mg/dL (8.5-10.1); Potassium 4.5 mmol/L (3.5-5.1); Prothrombin Time 10.9 sec (9.37-12.3)
[2017-04-15 18:59] LABS: BUN/Creatinine Ratio 7.1; Bilirubin, Total 0.5 mg/dL (0.2-1.0); Total Protein 7.9 g/dL (6.4-8.2)
[2017-04-15 20:55] VITALS: BP 125/80
[2017-04-15] MEDS ORDERED: LOPE1TAB9 PO (21:27)
[2017-04-15] MEDS ORDERED: HYDR-531 PO (21:27)
[2017-04-15] MEDS ORDERED: DIPH2.5T73 PO (21:27)
[2017-04-15] MEDS ORDERED: AMLO10TA2 PO (21:27)
[2017-04-15] MEDS: DIPHENOXYLATE W/ATROPINE 2.5 MG TAB PO PRN (21:31)
[2017-04-15] MEDS: SODIUM CHLOR 0.9% PF (SALINE LOCK) 10ML VIAL IV SCH (21:31)
[2017-04-15] MEDS: FAMOTIDINE 20 MG TAB PO SCH (21:31)
[2017-04-15] MEDS: HYDROcodone-ACET 10/325MG TAB PO PRN (21:46)
[2017-04-15 22:00] VITALS: BP 125/80
[2017-04-16] MEDS: MORPHINE SULFATE 4 MG/ML SYR/VIAL IV PRN ×3 (03:52→18:45)
[2017-04-16 05:00] VITALS: BP 119/74
[2017-04-16] MEDS: SODIUM CHLOR 0.9% PF (SALINE LOCK) 10ML VIAL IV SCH ×3 (06:00→21:13)
[2017-04-16 06:33] LABS: Hemoglobin 10.7 g/dL (13.5-17.5); Monocytes # (auto) 0.9 uL; Nucleated Red Blood Cells % 0.1 %; White Blood Cell 7.8 10^3/uL (4.4-10.8)
[2017-04-16 06:35] LABS: Basophils # (auto) 0 uL; Basophils % (auto) 0.6 % (0.0-2.0); Eosinophils # (auto) 0.5 uL; Eosinophils % (auto) 6.6 % (0.0-7.0); Hematocrit 31.3 % (41.0-53.0); Lymphocytes % (auto) 25.6 % (10.0-50.0); Mean Corpuscular Hemoglobin 36.6 pg (28.0-32.0); Mean Corpuscular Hgb Conc. 34.1 g/dL (32.0-36.0); Mean Corpuscular Volume 107.2 fL (80.0-100.0); Monocytes % (auto) 12.1 % (0.0-12.0); Neutrophils # (auto) 4.3 uL; Neutrophils % (auto) 55.1 % (37.0-80.0); Platelet Count (auto) 361 10^3/uL (140-450); Red Blood Cells 2.92 10^6/uL (4.5-5.90); Red Cell Distribution Width 16.1 % (11.8-14.3)
[2017-04-16 06:58] LABS: Potassium 4.8 mmol/L (3.5-5.1)
[2017-04-16 07:14] LABS: Albumin 2.7 g/dL (3.4-5.0); BUN/Creatinine Ratio 7.4; Calcium 8.6 mg/dL (8.5-10.1)
[2017-04-16 07:17] LABS: Bilirubin, Total 0.6 mg/dL (0.2-1.0)
[2017-04-16] MEDS ORDERED: LOPERAMIDE HCL 2 MG CAP PO PRN (08:00)
[2017-04-16 09:18] VITALS: BP 149/73
[2017-04-16] MEDS: MULTIPLE VITAMIN TAB PO SCH (10:06)
[2017-04-16] MEDS: amLODIPine BESYLATE 5 MG TAB PO SCH (10:06)
[2017-04-16] MEDS: FAMOTIDINE 20 MG TAB PO SCH ×2 (10:07→21:13)
[2017-04-16 13:00] VITALS: BP 138/80
[2017-04-16 16:34] VITALS: BP 132/80
[2017-04-16] MEDS: HYDROcodone-ACET 10/325MG TAB PO PRN (17:11)
[2017-04-16] MEDS: DIPHENOXYLATE W/ATROPINE 2.5 MG TAB PO PRN (21:13)
[2017-04-16 22:03] VITALS: BP 120/71
[2017-04-17] MEDS: MORPHINE SULFATE 4 MG/ML SYR/VIAL IV PRN ×7 (00:02→20:54)
[2017-04-17 05:03] VITALS: BP 131/81
[2017-04-17] MEDS: SODIUM CHLOR 0.9% PF (SALINE LOCK) 10ML VIAL IV SCH ×3 (05:08→21:55)
[2017-04-17] MEDS ORDERED: ceFAZolin 1GM 2 GM in D5W 5% 100 ML IV ONE (08:00)
[2017-04-17] MEDS ORDERED: ceFAZolin 1GM/50ML 100 ML IV ONE (09:17)
[2017-04-17] MEDS: FAMOTIDINE 20 MG TAB PO SCH ×2 (10:00→21:54)
[2017-04-17] MEDS: MULTIPLE VITAMIN TAB PO SCH (10:00)
[2017-04-17] MEDS ORDERED: SUCCINYLCHOLINE CHLORIDE 20 MG/ML 10ML VIAL IV ONE (10:18)
[2017-04-17] MEDS ORDERED: DEXAMETHASONE SOD PHOS 10MG/1ML VIAL INJ ONE (10:48)
[2017-04-17] MEDS ORDERED: PROPOFOL 10 MG/ML 20 ML IV ONE (10:48)
[2017-04-17] MEDS ORDERED: fentaNYL CITRATE 100 MCG/2 ML VL ONE (10:48)
[2017-04-17] MEDS ORDERED: MIDAZOLAM HCL 1MG/1ML-2 ML VIAL ONE (10:48)
[2017-04-17] MEDS ORDERED: MEPERIDINE HCL (50 MG/ML) 1 ML VIAL ONE ×2 (10:48→11:15)
[2017-04-17] MEDS ORDERED: MORPHINE SULFATE 4 MG/ML SYR/VIAL IV PRN (11:00)
[2017-04-17] MEDS ORDERED: MIDAZOLAM HCL 1MG/1ML-2 ML VIAL IV PRN (11:00)
[2017-04-17] MEDS ORDERED: ONDANSETRON HCL 4 MG/2 ML VIAL IV ONE (11:00)
[2017-04-17] MEDS ORDERED: fentaNYL CITRATE 100 MCG/2 ML VL IV ONE (11:00)
[2017-04-17] MEDS ORDERED: HYDROmorphone HCL 2 MG/ML VL IV PRN (11:00)
[2017-04-17] MEDS ORDERED: KETOROLAC TROMETH 30 MG/ML 1ML VIAL IV ONE (11:00)
[2017-04-17] MEDS ORDERED: ePHEDrine SULFATE 50 MG/ML AMP IV PRN (11:00)
[2017-04-17] MEDS ORDERED: LABETALOL HCL 5 MG/ML 4ML SYRINGE IV PRN (11:00)
[2017-04-17] MEDS ORDERED: KETOROLAC TROMETH 30 MG/ML 1ML VIAL ONE (11:17)
[2017-04-17] MEDS ORDERED: MORPHINE SULFATE 4 MG/ML SYR/VIAL IV ONE (12:00)
[2017-04-17] MEDS ORDERED: MORPHINE SULFATE 4 MG/ML SYR/VIAL ONE (12:15)
[2017-04-17] MEDS: HYDROcodone-ACET 10/325MG TAB PO PRN (14:12)
[2017-04-17] MEDS: amLODIPine BESYLATE 5 MG TAB PO SCH (14:27)
[2017-04-17] MEDS ORDERED: MEPERIDINE HCL (25 MG/ML) 1ML VIAL IV ONE (15:00)
[2017-04-17 17:00] VITALS: BP 131/76
[2017-04-17] MEDS ORDERED: THROAT LOZENGES(CEPASTAT) MT PRN (18:45)
[2017-04-17] MEDS: ceFAZolin 1GM/50ML 50 ML IV SCH (21:54)
[2017-04-17] MEDS: TEMAZEPAM 15 MG CAP PO PRN (21:54)
[2017-04-17 22:01] VITALS: BP 121/73
[2017-04-18] MEDS: MORPHINE SULFATE 4 MG/ML SYR/VIAL IV PRN ×4 (01:59→22:34)
[2017-04-18] MEDS: HYDROcodone-ACET 10/325MG TAB PO PRN ×2 (04:23→11:36)
[2017-04-18 05:05] VITALS: BP 138/77
[2017-04-18] MEDS: ceFAZolin 1GM/50ML 50 ML IV SCH ×3 (05:28→22:34)
[2017-04-18] MEDS: SODIUM CHLOR 0.9% PF (SALINE LOCK) 10ML VIAL IV SCH ×3 (05:28→22:00)
[2017-04-18 08:33] VITALS: BP 136/78
[2017-04-18] MEDS: MULTIPLE VITAMIN TAB PO SCH (10:14)
[2017-04-18] MEDS: FAMOTIDINE 20 MG TAB PO SCH ×2 (10:15→22:34)
[2017-04-18] MEDS: amLODIPine BESYLATE 5 MG TAB PO SCH (10:15)
[2017-04-18 12:03] VITALS: BP 125/71
[2017-04-18 15:00] VITALS: BP 123/71
[2017-04-18 21:38] VITALS: BP 147/82
[2017-04-18] MEDS: ASCORBIC ACID 500 MG TAB PO SCH (22:36)
[2017-04-19] MEDS: HYDROcodone-ACET 10/325MG TAB PO PRN ×4 (01:54→23:03)
[2017-04-19] MEDS: MORPHINE SULFATE 4 MG/ML SYR/VIAL IV PRN ×4 (02:57→20:31)
[2017-04-19 05:03] VITALS: BP 141/83
[2017-04-19] MEDS: SODIUM CHLOR 0.9% PF (SALINE LOCK) 10ML VIAL IV SCH ×3 (05:34→22:12)
[2017-04-19] MEDS: ceFAZolin 1GM/50ML 50 ML IV SCH (05:35)
[2017-04-19 09:00] VITALS: BP 131/76
[2017-04-19] MEDS: FAMOTIDINE 20 MG TAB PO SCH ×2 (10:20→22:12)
[2017-04-19] MEDS: MULTIPLE VITAMIN TAB PO SCH (10:20)
[2017-04-19] MEDS: ENOXAPARIN SOD 40 MG/0.4 ML SYRINGE SC SCH (10:21)
[2017-04-19] MEDS: amLODIPine BESYLATE 5 MG TAB PO SCH (10:21)
[2017-04-19] MEDS: ASCORBIC ACID 500 MG TAB PO SCH ×2 (10:21→22:12)
[2017-04-19 13:00] VITALS: BP 123/72
[2017-04-19 13:22] LABS: Hematocrit 32.2 % (41.0-53.0); Hemoglobin 10.8 g/dL (13.5-17.5)
[2017-04-19 16:43] VITALS: BP 101/70
[2017-04-19 22:00] VITALS: BP 128/75
[2017-04-19] MEDS: TEMAZEPAM 15 MG CAP PO PRN (22:35)
[2017-04-20] MEDS: MORPHINE SULFATE 4 MG/ML SYR/VIAL IV PRN ×5 (02:48→21:10)
[2017-04-20 05:00] VITALS: BP 135/80
[2017-04-20] MEDS: HYDROcodone-ACET 10/325MG TAB PO PRN ×3 (05:05→18:00)
[2017-04-20] MEDS: SODIUM CHLOR 0.9% PF (SALINE LOCK) 10ML VIAL IV SCH ×3 (06:15→21:33)
[2017-04-20 08:28] VITALS: BP 132/88
[2017-04-20] MEDS: MULTIPLE VITAMIN TAB PO SCH (10:14)
[2017-04-20] MEDS: amLODIPine BESYLATE 5 MG TAB PO SCH (10:14)
[2017-04-20] MEDS: FAMOTIDINE 20 MG TAB PO SCH ×2 (10:14→21:33)
[2017-04-20] MEDS: ENOXAPARIN SOD 40 MG/0.4 ML SYRINGE SC SCH (10:15)
[2017-04-20] MEDS: ASCORBIC ACID 500 MG TAB PO SCH ×2 (10:15→21:33)
[2017-04-20 12:25] VITALS: BP 140/87
[2017-04-20 21:30] VITALS: BP 137/81
[2017-04-20] MEDS: TEMAZEPAM 15 MG CAP PO PRN (21:33)
[2017-04-21] MEDS: HYDROcodone-ACET 10/325MG TAB PO PRN ×3 (00:14→19:48)
[2017-04-21] MEDS: MORPHINE SULFATE 4 MG/ML SYR/VIAL IV PRN ×6 (01:22→20:34)
[2017-04-21 04:55] VITALS: BP 118/77
[2017-04-21] MEDS: SODIUM CHLOR 0.9% PF (SALINE LOCK) 10ML VIAL IV SCH ×3 (07:05→21:33)
[2017-04-21 08:08] VITALS: BP 137/87
[2017-04-21] MEDS: ENOXAPARIN SOD 40 MG/0.4 ML SYRINGE SC SCH (09:26)
[2017-04-21] MEDS: amLODIPine BESYLATE 5 MG TAB PO SCH (09:27)
[2017-04-21] MEDS: ASCORBIC ACID 500 MG TAB PO SCH ×2 (09:27→21:33)
[2017-04-21] MEDS: FAMOTIDINE 20 MG TAB PO SCH ×2 (09:27→21:33)
[2017-04-21] MEDS: MULTIPLE VITAMIN TAB PO SCH (09:27)
[2017-04-21 12:30] VITALS: BP 118/72
[2017-04-21 17:04] VITALS: BP 126/77
[2017-04-21 21:30] VITALS: BP 133/84
[2017-04-21] MEDS: TEMAZEPAM 15 MG CAP PO PRN (21:33)
[2017-04-22] MEDS: MORPHINE SULFATE 4 MG/ML SYR/VIAL IV PRN ×2 (00:34→08:27)
[2017-04-22] MEDS: HYDROcodone-ACET 10/325MG TAB PO PRN ×2 (02:57→11:33)
[2017-04-22 05:00] VITALS: BP 114/81
[2017-04-22] MEDS: SODIUM CHLOR 0.9% PF (SALINE LOCK) 10ML VIAL IV SCH (08:26)
[2017-04-22 09:00] VITALS: BP 109/73
[2017-04-22] MEDS: amLODIPine BESYLATE 5 MG TAB PO SCH (09:57)
[2017-04-22] MEDS: ASCORBIC ACID 500 MG TAB PO SCH (09:59)
[2017-04-22] MEDS: FAMOTIDINE 20 MG TAB PO SCH (09:59)
[2017-04-22] MEDS: MULTIPLE VITAMIN TAB PO SCH (09:59)
[2017-04-22] MEDS: ENOXAPARIN SOD 40 MG/0.4 ML SYRINGE SC SCH (10:00)
[2017-04-22 10:49] VITALS: BP 109/73
== END 2017-04-22 11:55 | disposition home health service (06) | DRG 308 ==
LOC: ER 14:20 → EDBD 14:20 → OVERFLOW 14:21 → WEST WING 20:34
PROVIDERS: ADMIT Internal Medicine; ATTEND Internal Medicine
PROC: 0QS606Z Reposition Right Upper Femur with Intramedullary Internal Fixation Device, Open Approach (ICD-10-PCS; principal; 2017-04-17 10:22)
DX: S72.141A Displaced intertrochanteric fracture of right femur, initial encounter for closed fracture (principal); I12.0 Hypertensive chronic kidney disease with stage 5 chronic kidney disease or end stage renal disease; E44.0 Moderate protein-calorie malnutrition; I48.92 Unspecified atrial flutter; N18.5 Chronic kidney disease, stage 5; I48.91 Unspecified atrial fibrillation; F17.210 Nicotine dependence, cigarettes, uncomplicated; W07.XXXA Fall from chair, initial encounter; M19.90 Unspecified osteoarthritis, unspecified site; Z82.49 Family history of ischemic heart disease and other diseases of the circulatory system; Z93.2 Ileostomy status; Y93.89 Activity, other specified; Y92.89 Other specified places as the place of occurrence of the external cause; Z88.8 Allergy status to other drugs, medicaments and biological substances; Z84.1 Family history of disorders of kidney and ureter; Z79.899 Other long term (current) drug therapy; Z68.25 Body mass index [BMI] 25.0-25.9, adult
CPT/HCPCS: 36415; 71046; 73502; 76000; 80053; 85014; 85018; 85025; 85610; 85730; 86850; 86900; 86901; 87077; 87081; 87186; 87205; 93005; 96361; 96372; 96374; 97163; C1769; C1781; J0330; J0690; J1100; J1885; J2250; J2405; J2704; J7060

== ENCOUNTER → 2017-04-26 | Emergency (ER) | payer MEDICAID ==
[~2017-04-26] MED LIST changes: +AMLO10TA2 PO; +DIPH2.5T73 PO; -DOCU-94 PO; +HYDR-531 PO; -HYDR10TA26 PO; -LISI-646 PO; +LOPE1TAB9 PO; -ONDA4TAB5 PO
== END | disposition left against medical advice (07) ==
LOC: ER 14:24
DX: I95.9 Hypotension, unspecified (principal); Z53.21 Procedure and treatment not carried out due to patient leaving prior to being seen by health care provider

== ENCOUNTER 2017-09-28 08:57 | Emergency (ER) | payer MEDICAID ==
[~2017-09-28] VITALS: Ht 167.6 cm; Wt 77.1 kg
[~2017-09-28 08:57] MED LIST changes: -DIPH2.5T73 PO; -HYDR-531 PO; +LISI10TA6 PO; -LOPE1TAB9 PO
[2017-09-28 09:10] VITALS: BP 138/95
[2017-09-28] MEDS ORDERED: KETOROLAC TROMETH 60MG/2ML VIAL IM ONE (10:30)
== END 2017-09-28 11:27 | disposition home or self-care (01) ==
LOC: ER 08:57
DX: S22.41XA Multiple fractures of ribs, right side, initial encounter for closed fracture (principal); I10 Essential (primary) hypertension; Z88.8 Allergy status to other drugs, medicaments and biological substances; W11.XXXA Fall on and from ladder, initial encounter; Y93.89 Activity, other specified; Y92.89 Other specified places as the place of occurrence of the external cause; Y99.8 Other external cause status
CPT/HCPCS: 71101; 96372; 99284; J1885

== ENCOUNTER 2020-03-13 10:00 | Inpatient (IN) | payer MEDICAID ==
[~2020-03-13] VITALS: Ht 167.6 cm; Wt 80.0 kg
[~2020-03-13 10:00] MED LIST changes: +AMLO-496 PO; -AMLO10TA2 PO; +LISI-648 PO; -LISI10TA6 PO
[2020-03-13] MEDS ORDERED: SODIUM CHLORIDE 0.9% 1,000 ML IV ONE (10:30)
[2020-03-13] MEDS ORDERED: cefTRIAXone 1GM/50ML D5W 50 ML IV ONE (10:30)
[2020-03-13 10:49] LABS: Basophils # (auto) 0 10 ^3/uL (0-0.2); Basophils % (auto) 0.2 % (0.0-2.0); Eosinophils # (auto) 0 10 ^3/uL (0-0.8); Hematocrit 31.2 % (41.0-53.0); Hemoglobin 10.3 g/dL (13.5-17.5); Lymphocytes # (auto) 0.6 10 ^3/uL (0.4-5.4); Lymphocytes % (auto) 4.1 % (10.0-50.0); Mean Corpuscular Hemoglobin 33.3 pg (28.0-32.0); Mean Corpuscular Hgb Conc. 32.9 g/dL (32.0-36.0); Mean Corpuscular Volume 101.1 fL (80.0-100.0); Monocytes # (auto) 1.9 10 ^3/uL (0-1.3); Monocytes % (auto) 13.4 % (0.0-12.0); Neutrophils # (auto) 11.6 10 ^3/uL (1.6-8.6); Neutrophils % (auto) 82.3 % (37.0-80.0); Platelet Count (auto) 321 10^3/uL (140-450); Red Blood Cells 3.09 10^6/uL (4.5-5.90); Red Cell Distribution Width 16.2 % (11.8-14.3); White Blood Cell 14.1 10^3/uL (4.4-10.8)
[2020-03-13 11:11] LABS: Albumin 2.8 g/dL (3.4-5.0); Anion Gap 26 (5-15); Blood Urea Nitrogen 38 mg/dL (7-18); Calcium 8.4 mg/dL (8.5-10.1); Carbon Dioxide 11 mmol/L (21-32); Chloride 97 mmol/L (98-107); Glucose 138 mg/dL (74-106); Sodium 134 mmol/L (136-145)
[2020-03-13 11:18] LABS: Alanine Aminotransferase 18 U/L (16-61); Alkaline Phosphatase 121 U/L (45-117); Aspartate Aminotransferase 35 U/L (15-37); BUN/Creatinine Ratio 7.9; Bilirubin, Total 0.4 mg/dL (0.2-1.0); GFR African American 16 mL/min; GFR Non-African American 13 mL/min; Total Protein 6.6 g/dL (6.4-8.2)
[2020-03-13] MEDS ORDERED: NITROGLYCERIN 0.4 MG SL TAB SL PRN (18:30)
[2020-03-13] MEDS ORDERED: SODIUM BICARBONATE 50ML VIAL 50 ML in SOD CHL 0.45% 1,000 ML IV ONE (18:30)
[2020-03-13] MEDS ORDERED: ACETAMINOPHEN 500 MG TAB PO PRN (18:30)
[2020-03-13] MEDS ORDERED: ONDANSETRON HCL 4 MG/2 ML VIAL IV PRN (18:30)
[2020-03-13] MEDS ORDERED: HYDROcodone-ACET 5/325MG TAB PO PRN (18:30)
[2020-03-13] MEDS ORDERED: MORPHINE SULF INJ 2 MG/ML SYRINGE 1ML IV PRN ×2 (18:30)
[2020-03-13] MEDS ORDERED: POTASSIUM CHLORIDE 8 MEQ TAB PO ONE (18:30)
[2020-03-13] MEDS: ENOXAPARIN SOD 30 MG/0.3 ML SYRINGE SC SCH (18:53)
[2020-03-13] MEDS ORDERED: PIPERACILLIN-TAZOB 2.25GM 50 ML IV ONE (19:00)
[2020-03-14] MEDS: PIPERACILLIN-TAZOB 2.25GM 50 ML IV SCH ×3 (03:00→20:49)
[2020-03-14 07:51] LABS: Urine Bacteria NONE SEEN /hpf (None Seen); Urine Blood Negative /uL (Negative); Urine Specific Gravity 1.017 (1.001-1.035); Urine WBC 1 /hpf (0 - 3)
[2020-03-14 08:03] LABS: Amphetamine Screen, Urine NEGATIVE (NEGATIVE); Barbiturate Scree,Urine NEGATIVE (NEGATIVE); Benzodiazephine Screen, Urine NEGATIVE (NEGATIVE); Cannabinoid Screen, Urine NEGATIVE (NEGATIVE); Cocaine Screen, Urine NEGATIVE (NEGATIVE); Opiate Scree,Urine NEGATIVE (NEGATIVE); Phencyclidine Screen, Urine NEGATIVE (NEGATIVE)
[2020-03-14] MEDS: FOLIC ACID 1 MG TAB PO SCH (08:40)
[2020-03-14] MEDS: FAMOTIDINE 20 MG TAB PO SCH (08:40)
[2020-03-14] MEDS: THIAMINE HCL 100 MG TAB PO SCH (08:40)
[2020-03-14] MEDS: MULTIPLE VITAMIN TAB PO SCH (08:40)
[2020-03-14 10:05] LABS: Albumin 2.2 g/dL (3.4-5.0); Calcium 7.4 mg/dL (8.5-10.1); Potassium 3.7 mmol/L (3.5-5.1)
[2020-03-14 10:08] LABS: Basophils # (auto) 0 10 ^3/uL (0-0.2); Basophils % (auto) 0.5 % (0.0-2.0); Eosinophils # (auto) 0 10 ^3/uL (0-0.8); Hematocrit 27.5 % (41.0-53.0); Hemoglobin 9.3 g/dL (13.5-17.5); Lymphocytes # (auto) 0.2 10 ^3/uL (0.4-5.4); Mean Corpuscular Hemoglobin 33.4 pg (28.0-32.0); Mean Corpuscular Hgb Conc. 33.7 g/dL (32.0-36.0); Mean Corpuscular Volume 98.9 fL (80.0-100.0); Monocytes # (auto) 0.6 10 ^3/uL (0-1.3); Monocytes % (auto) 11.9 % (0.0-12.0); Neutrophils # (auto) 4.2 10 ^3/uL (1.6-8.6); Neutrophils % (auto) 83.6 % (37.0-80.0); Platelet Count (auto) 238 10^3/uL (140-450); Red Blood Cells 2.78 10^6/uL (4.5-5.90); Red Cell Distribution Width 15.9 % (11.8-14.3)
[2020-03-14 10:09] LABS: BUN/Creatinine Ratio 9.5; Bilirubin, Total 0.3 mg/dL (0.2-1.0); Total Protein 5.5 g/dL (6.4-8.2)
[2020-03-14] MEDS: LINEZOLID 600MG/300ML 300 ML IV SCH ×2 (10:30→22:21)
[2020-03-14] MEDS ORDERED: chlordiazePOXIDE HCL 5 MG CAP PO PRN (11:15)
[2020-03-14] MEDS ORDERED: SOD CHL 0.9%/ KCL 20MEQ 1,000 ML IV ONE (11:30)
[2020-03-14 11:48] LABS: Magnesium 2.2 mg/dL (1.6-2.6); Phosphorus 3.5 mg/dL (2.5-4.90)
[2020-03-14] MEDS ORDERED: TEMAZEPAM 15 MG CAP PO PRN (13:30)
[2020-03-14] MEDS ORDERED: ENOXAPARIN SOD 30 MG/0.3 ML SYRINGE SC SCH (18:00)
[2020-03-14] MEDS: ENOXAPARIN SOD 30 MG/0.3 ML SYRINGE SC SCH (18:18)
[2020-03-14 21:28] VITALS: BP 137/80
[2020-03-15] MEDS: PIPERACILLIN-TAZOB 2.25GM 50 ML IV SCH ×2 (02:45→12:44)
[2020-03-15 06:32] LABS: Potassium 3.8 mmol/L (3.5-5.1)
[2020-03-15 06:37] LABS: Albumin 2.1 g/dL (3.4-5.0); BUN/Creatinine Ratio 10.1; Bilirubin, Total 0.3 mg/dL (0.2-1.0); Calcium 7.9 mg/dL (8.5-10.1); Total Protein 5.7 g/dL (6.4-8.2)
[2020-03-15 06:43] LABS: Hematocrit 32.8 % (41.0-53.0); Hemoglobin 10.6 g/dL (13.5-17.5); Mean Corpuscular Hemoglobin 32.6 pg (28.0-32.0); Mean Corpuscular Hgb Conc. 32.2 g/dL (32.0-36.0); Mean Corpuscular Volume 101.2 fL (80.0-100.0); Platelet Count (auto) 230 10^3/uL (140-450); Red Blood Cells 3.24 10^6/uL (4.5-5.90); Red Cell Distribution Width 16.8 % (11.8-14.3); White Blood Cell 4.8 10^3/uL (4.4-10.8)
[2020-03-15 06:51] LABS: Basophils % (manual) 0 (0.0-2.0); Blast Cells 0; Eosinophils % (manual) 0 (0-7); Metamyelocytes % 0; Myelocytes % 0; Promyelocytes % 0; Reactive Lymphocytes 0
[2020-03-15 07:01] VITALS: BP 152/80
[2020-03-15 08:00] VITALS: BP 152/80
[2020-03-15 08:30] VITALS: BP 152/80
[2020-03-15 08:37] LABS: Band Neutrophils % (manual) 2; Lymphocytes % (manual) 15 (10.0-50.0); Monocytes % (manual) 15 (0-12)
[2020-03-15] MEDS: THIAMINE HCL 100 MG TAB PO SCH (09:43)
[2020-03-15] MEDS: MULTIPLE VITAMIN TAB PO SCH (09:44)
[2020-03-15] MEDS: FOLIC ACID 1 MG TAB PO SCH (09:44)
[2020-03-15] MEDS: LINEZOLID 600MG/300ML 300 ML IV SCH ×2 (10:44→22:36)
[2020-03-15] MEDS ORDERED: diphenhdrAMINE HCL 50 MG/1 ML VL IV PRN (13:45)
[2020-03-15 16:25] VITALS: BP 150/89
[2020-03-15] MEDS ORDERED: PIPERACILLIN-TAZOB 2.25GM 50 ML IV SCH (18:00)
[2020-03-15] MEDS: ENOXAPARIN SOD 30 MG/0.3 ML SYRINGE SC SCH (18:20)
[2020-03-16] VITALS: BP 153/93
[2020-03-16 01:25] VITALS: BP 157/94
[2020-03-16 02:45] VITALS: BP 161/96
[2020-03-16 08:00] VITALS: BP 149/93
[2020-03-16 08:19] LABS: BUN/Creatinine Ratio 10.7; Calcium 7.8 mg/dL (8.5-10.1); Potassium 4.5 mmol/L (3.5-5.1)
[2020-03-16] MEDS ORDERED: MIDAZOLAM HCL 5 MG/ML-1ML VIAL IV ONE (08:45)
[2020-03-16] MEDS ORDERED: LIDOCAINE VISCOUS 2% 15ML UD MT ONE (08:45)
[2020-03-16] MEDS ORDERED: fentaNYL CITRATE 100 MCG/2 ML VL IV ONE (08:45)
[2020-03-16] MEDS ORDERED: diphenhdrAMINE HCL 50 MG/1 ML VL IV ONE (08:45)
[2020-03-16] MEDS ORDERED: fentaNYL CITRATE 100 MCG/2 ML VL ONE (08:58)
[2020-03-16] MEDS ORDERED: diphenhdrAMINE HCL 50 MG/1 ML VL ONE (08:58)
[2020-03-16] MEDS ORDERED: MIDAZOLAM HCL 1MG/1ML-2 ML VIAL ONE (08:58)
[2020-03-16] MEDS ORDERED: LIDOCAINE VISCOUS 2% 15ML UD ONE (08:59)
[2020-03-16] MEDS: THIAMINE HCL 100 MG TAB PO SCH (09:56)
[2020-03-16] MEDS: FAMOTIDINE 20 MG TAB PO SCH (09:56)
[2020-03-16] MEDS: MULTIPLE VITAMIN TAB PO SCH (09:56)
[2020-03-16] MEDS: FOLIC ACID 1 MG TAB PO SCH (09:56)
[2020-03-16] MEDS: LINEZOLID 600MG/300ML 300 ML IV SCH (10:51)
[2020-03-16] MEDS ORDERED: amLODIPine BESYLATE 5 MG TAB PO ONE (11:15)
[2020-03-16 17:09] VITALS: BP 139/86
[2020-03-17] MEDS ORDERED: amLODIPine BESYLATE 5 MG TAB PO SCH (10:00)
== END 2020-03-16 22:30 | DRG 720 ==
LOC: EDBD 10:00 → ER 10:00 → TELE 10:01 → TELE-WESTW 03-14 21:15 → TELE-CENTR 03-14 21:28 → TELE-WESTW 03-15 13:35
PROVIDERS: ADMIT Nurse Practitioner Acute Care; ATTEND Internal Medicine
PROC: XW13325 Transfusion of Convalescent Plasma (Nonautologous) into Peripheral Vein, Percutaneous Approach, New Technology Group 5 (ICD-10-PCS; principal; 2020-03-16)
PROC: B246ZZ4 Ultrasonography of Right and Left Heart, Transesophageal (ICD-10-PCS; 2020-03-16)
DX: A41.89 Other specified sepsis (principal); R65.20 Severe sepsis without septic shock; U07.1 COVID-19; N17.0 Acute kidney failure with tubular necrosis; N18.4 Chronic kidney disease, stage 4 (severe); E43 Unspecified severe protein-calorie malnutrition; F10.20 Alcohol dependence, uncomplicated; J12.82 Pneumonia due to coronavirus disease 2019; E87.6 Hypokalemia; E87.1 Hypo-osmolality and hyponatremia; D53.9 Nutritional anemia, unspecified; I76 Septic arterial embolism; I12.9 Hypertensive chronic kidney disease with stage 1 through stage 4 chronic kidney disease, or unspecified chronic kidney disease; Z68.28 Body mass index [BMI] 28.0-28.9, adult; Z59.0 Homelessness; Z82.49 Family history of ischemic heart disease and other diseases of the circulatory system
CPT/HCPCS: 36415; 71045; 71250; 74176; 76775; 80048; 80053; 80307; 80320; 81001; 83735; 84100; 84484; 85007; 85025; 85027; 85379; 86850; 86900; 86901; 87040; 87426; 93005; 93306; 96361; 96365; 99152; 99291; G0378; J0696; J2250; J2405; J2543